=== PATIENT | female | born 1985 | race Caucasian/White ===

== ENCOUNTER 2018-10-08 16:09 | Emergency (ER) | payer MEDICARE, MEDICAID, SELFPAY ==
[2018-10-08 16:27] VITALS: BP 128/71; PULSE 112; RESP 18; TEMP 36.6; O2SAT 98
--- NOTE | 2018-10-08 17:05 | W.ED.GENAD ---
Discharge Plan Disposition Patient Disposition: HOME Condition: Fair Discharge Details Chief Complaint: SHUTTLE HAND Clinical Impression: Exposure to STD Primary Care Provider: Iris Logan V ED Provider: Sybil Traore Home Meds and New Rx's Prescriptions: No Action No Known Home Meds RF: 0 Discharge Instructions Instructions: Chlamydia (ED), Gonorrhea (ED) Additional Instructions: [facility] to discuss current treatment and schedule Depo shot. No unprotected sex for the next 7 days. If you develop abdominal pain, pain with urination, fevers/chills, vaginal discharge or other new/worsening symptoms please seek care urgently once again. You were treated today with ceftriaxone and azithromycin. Referrals: Iris Logan MD [Primary Care Provider] - Discharge Data Discharge Date/Time-TO BE ENTERED AT DEPARTURE: 10/08/18 18:10 Medical Decision Making Patient is a 33 year old female, accompanied by significant other, with c/c of GC/Chlamydia exposure. She reports that significant other was treated a few weeks ago and she is concerned that she was exposed. Signficant other was advised to have her come to be treated. She denies any symptoms, no discharge, dysparunea, dysurea, foul odor. Finished LMP 2 days ago. Is due for her depo shot, typically gets this through [facility]. Exam is without significant abnromality. Naveed is noted to be tachycardic but does seem very nervous about this. I did offer her further testing her but she would prefer treatment at this time with close follow up with [facility] where she may receive her injection and discuss testing. Will treat prophylactically with IM Ceftriaxone and oral Azithromycin. Discussed new/worsening symptoms and when to seek care urgently once again. She will contact [facility] tomorrow to schedule followup. All of her questions and concerns were addressed, she is in agreement with this plan. HPI General Mode of arrival: ambulatory. Date/Time Provider Initiated Documentation: 10/08/18 16:45. Limitations to Documentation: no limitations. Information obtained by: patient. History of Present Illness 33 year old F presents to the emergency department with the chief complaint of STD exposure, Patient started experiencing this week(s) Patient notes no other symptoms.; denies chest pain, cough, fever/chills, headaches, loss of appetite, malaise, nausea/vomiting, rash and weakness. Related Data Home Medications Medication Instructions Recorded Confirmed Unknown [No Known Home Meds] 10/08/18 10/08/18 Allergies Allergy/AdvReac Type Severity Reaction Status Date / Time sulfamethoxazole AdvReac Intermediate Headache Verified 10/08/18 16:31 [From Bactrim] trimethoprim [From Bactrim] AdvReac Intermediate Headache Verified 10/08/18 16:31 General Stated Complaint: SHUTTLE HAND BRUNO: 4 Review of Systems Constitutional Reports as per HPI, Denies chills, Denies fever(s) and Denies poor appetite Cardiovascular Denies chest pain Respiratory Denies cough Gastrointestinal Denies abdominal pain, Denies change in bowel habits, Denies nausea and Denies vomiting Genitourinary Reports as per HPI, Denies abnormal menses, Denies urinary frequency, Denies genital pruritis, Denies genital lesions, Denies dysuria, Denies flank pain, Denies urinary incontinence, Denies urinary urgency, Denies vaginal discharge, Denies vaginal dryness, Denies vaginal odor and Denies vaginal pruritus Musculoskeletal Reports as per HPI and Denies back pain Integumentary/Breasts Reports as per HPI and Denies rash PFSH Family History Other Diabetes Mental disorder Personal history of malignant neoplasm Medical History Anxiety Social History Smoking/Tobacco Use Status: Current every day Exam Const General: cooperative, healthy appearing, comfortable, no acute distress, well developed and well groomed Nutritional Appearance: average body habitus and well nourished Orientation: alert and awake Resp Effort & Inspection: normal respiratory effort and no respiratory distress Auscultation: clear to auscultation bilaterally, no rales, no rhonchi and no wheezes Cardio Rate: regular rate Rhythm: regular rhythm Heart Sounds: S1 normal and S2 normal GI Inspection: normal to inspection Palpation: soft, no hepatosplenomegaly, not firm, no guarding, not rigid and nontender Back/Spine/Pelvis Back: no CVA tenderness Skin General skin exam: no rashes or lesions noted Trauma: no lacerations or abrasions Neuro General: alert and awake Cognition: normal cognition Speech: speech normal Gait: normal gait Psych Appearance: grossly normal and well kempt Mental Status: mental status grossly normal Speech and Movement: speech and movement normal Course Vital Signs Temperature 36.6 C 10/08/18 16:27 Pulse 112 H 10/08/18 16:27 Respiratory Rate 18 10/08/18 16:27 Blood Pressure 128/71 10/08/18 16:27 Pulse Oximetry 98 10/08/18 16:27 Temperature 36.6 C 10/08/18 16:27 Temperature Source Skin 10/08/18 16:27 Pulse 112 H 10/08/18 16:27 Respiratory Rate 18 10/08/18 16:27 Respiratory Effort 10/08/18 16:27 Blood Pressure 128/71 10/08/18 16:27 Blood Pressure Position Sitting 10/08/18 16:27 Pulse Oximetry 98 10/08/18 16:27 Oxygen Delivery Method Room Air 10/08/18 16:27 Oxygen Flow Rate 0 10/08/18 16:27 Pain Level 0 10/08/18 16:27
--- NOTE | 2018-10-08 17:11 | ED.GENADUL_ITS ---
Discharge Plan Disposition Patient Disposition: HOME Condition: Fair Discharge Details Chief Complaint: BIOINFORMATICIAN Clinical Impression: Exposure to STD Primary Care Provider: Iris Logan V ED Provider: Sybil Traore Home Meds and New Rx's Prescriptions: No Action No Known Home Meds RF: 0 Discharge Instructions Instructions: Chlamydia (ED), Gonorrhea (ED) Additional Instructions: [facility] contact [facility] to discuss current treatment and schedule Depo shot. No unprotected sex for the next 7 days. If you develop abdominal pain, pain with urination, fevers/chills, vaginal discharge or other new/worsening symptoms please seek care urgently once again. You were treated today with ceftriaxone and azithromycin. Referrals: Iris Logan MD [Primary Care Provider] - Discharge Data Discharge Date/Time-TO BE ENTERED AT DEPARTURE: 10/08/18 18:10 Medical Decision Making Patient is a 33 year old female, accompanied by significant other, with c/c of GC/Chlamydia exposure. She reports that significant other was treated a few weeks ago and she is concerned that she was exposed. Signficant other was advised to have her come to be treated. She denies any symptoms, no discharge, dysparunea, dysurea, foul odor. Finished LMP 2 days ago. Is due for her depo shot, typically gets this through [facility]. Exam is without significant abnromality. Naveed is noted to be tachycardic but does seem very nervous about this. I did offer her further testing her but she would prefer treatment at this time with close follow up with [facility] where she may receive her injection and discuss testing. Will treat prophylactically with IM Ceftriaxone and oral Azithromycin. Discussed new/worsening symptoms and when to seek care urgently once again. She will contact [facility] tomorrow to schedule followup. All of her questions and concerns were addressed , she is in agreement with this plan. HPI General Mode of arrival: ambulatory . Date/Time Provider Initiated Documentation: 10/08/18 16:45 . Limitations to Documentation: no limitations . Information obtained by: patient . History of Present Illness 33 year old F presents to the emergency department with the chief complaint of STD exposure, Patient started experiencing this week(s) Patient notes no other symptoms.; denies chest pain, cough, fever/chills, headaches, loss of appetite, malaise, nausea/vomiting, rash and weakness. Related Data Home Medications Medication Instructions Recorded Confirmed Unknown [No Known Home Meds] 10/08/18 10/08/18 Allergies Allergy/AdvReac Type Severity Reaction Status Date / Time sulfamethoxazole AdvReac Intermediate Headache Verified 10/08/18 16:31 [From Bactrim] trimethoprim [From Bactrim] AdvReac Intermediate Headache Verified 10/08/18 16: 31 General Stated Complaint: BIOINFORMATICIAN BRUNO: 4 Review of Systems Constitutional Reports as per HPI, Denies chills, Denies fever(s) and Denies poor appetite Cardiovascular Denies chest pain Respiratory Denies cough Gastrointestinal Denies abdominal pain, Denies change in bowel habits, Denies nausea and Denies vomiting Genitourinary Reports as per HPI, Denies abnormal menses, Denies urinary frequency, Denies genital pruritis, Denies genital lesions, Denies dysuria, Denies flank pain, Denies urinary incontinence, Denies urinary urgency, Denies vaginal discharge, Denies vaginal dryness, Denies vaginal odor and Denies vaginal pruritus Musculoskeletal Reports as per HPI and Denies back pain Integumentary/Breasts Reports as per HPI and Denies rash PFSH Family History Other Diabetes Mental disorder Personal history of malignant neoplasm Medical History Anxiety Social History Smoking/Tobacco Use Status: Current every day Exam Const General: cooperative, healthy appearing, comfortable, no acute distress, well developed and well groomed Nutritional Appearance: average body habitus and well nourished Orientation: alert and awake Resp Effort & Inspection: normal respiratory effort and no respiratory distress Auscultation: clear to auscultation bilaterally, no rales, no rhonchi and no wheezes Cardio Rate: regular rate Rhythm: regular rhythm Heart Sounds: S1 normal and S2 normal GI Inspection: normal to inspection Palpation: soft, no hepatosplenomegaly, not firm, no guarding, not rigid and nontender Back/Spine/Pelvis Back: no CVA tenderness Skin General skin exam: no rashes or lesions noted Trauma: no lacerations or abrasions Neuro General: alert and awake Cognition: normal cognition Speech: speech normal Gait: normal gait Psych Appearance: grossly normal and well kempt Mental Status: mental status grossly normal Speech and Movement: speech and movement normal Course Vital Signs Temperature 36.6 C 10/08/18 16:27 Pulse 112 H 10/08/18 16:27 Respiratory Rate 18 10/08/18 16:27 Blood Pressure 128/71 10/08/18 16:27 Pulse Oximetry 98 10/08/18 16:27 Temperature 36.6 C 10/08/18 16:27 Temperature Source Skin 10/08/18 16:27 Pulse 112 H 10/08/18 16:27 Respiratory Rate 18 10/08/18 16:27 Respiratory Effort 10/08/18 16:27 Blood Pressure 128/71 10/08/18 16:27 Blood Pressure Position Sitting 10/08/18 16:27 Pulse Oximetry 98 10/08/18 16:27 Oxygen Delivery Method Room Air 10/08/18 16:27 Oxygen Flow Rate 0 10/08/18 16:27 Pain Level 0 10/08/18 16:27
[2018-10-08] MEDS: Azithromycin 250 MG TAB 1000 MG PO (17:48)
[2018-10-08] MEDS: cefTRIAXone 250 MG VIAL IM (17:48)
== END 2018-10-08 18:10 | disposition home or self-care (01) ==
PROVIDERS: Emergency Provider Physician Assistant; PCP Family Medicine
DX: R00.0 Tachycardia, unspecified (principal); Z20.2 Contact with and (suspected) exposure to infections with a predominantly sexual mode of transmission
CPT/HCPCS: 96372; 99284; J0696

== ENCOUNTER 2018-12-30 03:02 | Emergency (ER) | payer MEDICARE, MEDICAID, SELFPAY ==
[2018-12-30 03:11] VITALS: BP 106/63; PULSE 134; RESP 20; TEMP 38.6; O2SAT 92
--- NOTE | 2018-12-30 03:31 | ED.GENADUL_ITS ---
Discharge Plan Disposition Patient Disposition: HOME Condition: Good Discharge Details Chief Complaint: RespSymp Clinical Impression: Influenza A Primary Care Provider: Iris Logan V ED Provider: Niranjan Mercado Home Meds and New Rx's Prescriptions: No Action No Known Home Meds RF: 0 Discharge Instructions Instructions: Influenza (ED) Additional Instructions: You will need to rest and hydrate over the week. Use Tylenol and Motrin for fever and pain. Follow-up with primary care next week if not doing better. Return to ED for mental status changes, increasing shortness of breath, chest pain, vomiting, other concerns. Referrals: Iris Logan MD [Primary Care Provider] - Medical Decision Making Patient had oral temperature taken and she is febrile. That would explain her tachycardia. Saturations little on the low side but she is a smoker. She has good air exchange and only a few scattered wheezes. She has no focal lung findings. Flu swab was sent by nursing but given her symptoms and her exposure suspect that influenza is her diagnosis. She has no underlying medical issues. She does not qualify for Tamiflu and I have discussed this with her. Management is simply rest, fluids, Tylenol and Motrin as needed for fever and pain. Follow-up with primary care next week if not doing better. Return to the emergency department for increasing shortness of breath, mental status changes, chest pain, vomiting, other concerns. She is given Motrin here for her fever and body pain. Prior to discharge her flu swab did return positive for influenza A. HPI General Mode of arrival: ambulatory . Date/Time Provider Initiated Documentation: 12/30/18 03:22 . Limitations to Documentation: no limitations . Information obtained by: patient . HPI Narrative: Patient presents to ED with complaints of fever, body aches, cough. Symptoms started and she has been in bed most of the weekend. Her son tested positive for influenza. She is a smoker. She feels a little short of breath. She does not have any underlying medical problems that she is aware of. She has no vomiting and is able to drink. She took Tylenol earlier today but nothing recently. Related Data Home Medications Medication Instructions Recorded Confirmed Unknown [No Known Home Meds] 10/08/18 12/30/18 Allergies Allergy/AdvReac Type Severity Reaction Status Date / Time sulfamethoxazole AdvReac Intermediate Headache Verified 12/30/18 03:16 [From Bactrim] trimethoprim [From Bactrim] AdvReac Intermediate Headache Verified 12/30/18 03:16 General Stated Complaint: RespSymp BRUNO: 4 Review of Systems Constitutional Reports body ache(s), Reports fatigue, Reports fever(s), Denies headache(s), Reports malaise and Denies weakness ENT Denies headache(s), Reports nasal congestion, Denies neck pain and Denies sore throat Cardiovascular Denies chest pain, Denies syncope and Reports dyspnea (mild) Respiratory Reports cough and Reports dyspnea (mild) Gastrointestinal Denies abdominal pain, Denies diarrhea, Denies nausea and Denies vomiting Musculoskeletal Reports back pain, Reports myalgias, Denies neck pain and Denies numbness Integumentary/Breasts Denies rash Neurologic Denies confusion, Denies syncope, Denies headache(s), Denies numbness and Denies weakness Psychiatric Denies confusion Endocrine Reports fatigue [facility] Medical History Anxiety Family History Other Diabetes Mental disorder Personal history of malignant neoplasm Social History Smoking and Tabacco status: Current every day Exam Const General: cooperative and no acute distress Orientation: alert and oriented x3 HENMT Head: normocephalic and atraumatic Ears: external ears normal and TM's normal bilaterally Mouth: oropharynx normal and moist mucous membranes Throat: posterior oropharynx normal Neck Neck: no lymphadenopathy, trachea midline and supple Resp Effort & Inspection: normal respiratory effort Auscultation: lung sounds not diminished, no rales, no rhonchi and wheezes scattered wheezes (faint ) Cardio Rate: tachycardic Rhythm: regular rhythm Heart Sounds: S1 normal and S2 normal Pulses: radial pulses present Skin General skin exam: no rashes or lesions noted Neuro General: alert, oriented x3, no focal motor deficits and CN's II-XI intact bilaterally Course Vital Signs Temperature 98.6 F 12/30/18 03:11 Pulse 134 H 12/30/18 03:11 Respiratory Rate 20 12/30/18 03:11 Blood Pressure 106/63 12/30/18 03:11 Pulse Oximetry 92 L 12/30/18 03:11 Temperature 98.6 F 12/30/18 03:11 Pulse 134 H 12/30/18 03:11 Respiratory Rate 20 12/30/18 03:11 Respiratory Effort 12/30/18 03:15 Respiratory Depth Normal 12/30/18 03:15 Blood Pressure 106/63 12/30/18 03:11 Pulse Oximetry 92 L 12/30/18 03:11 Oxygen Delivery Method Room Air 12/30/18 03:11 Oxygen Flow Rate 0 12/30/18 03:11 Pain Level 7 12/30/18 03:11 Lab/Test Results Lab/Test Results: 12/30/18 03:15 Nose Influenza Types A,B Antigen - Pending
[2018-12-30 03:35] VITALS: TEMP 38.6
[2018-12-30] MEDS: Ibuprofen 600 MG TAB PO (03:35)
== END 2018-12-30 03:52 | disposition home or self-care (01) ==
PROVIDERS: Emergency Provider Emergency Medicine; PCP Family Medicine
DX: M79.10 Myalgia, unspecified site (principal); R50.9 Fever, unspecified; J10.1 Influenza due to other identified influenza virus with other respiratory manifestations; F17.210 Nicotine dependence, cigarettes, uncomplicated
CPT/HCPCS: 87449; 99282

== ENCOUNTER 2020-01-01 15:45 | Outpatient (CLI) | payer MEDICARE, MEDICAID, SELFPAY ==
--- NOTE | 2020-01-01 | DI.RAD_ITS ---
EXAM: XR FINGER LT MIDDLE INDICATION: LT FINGER PAIN [id number], LT MIDDLE FINGER DISTAL PHALYNX LESION, CHRONIC. COMPARISON: No exams were available for comparison TECHNIQUE: 2D digital imaging was performed. FINDINGS: No fracture or bony erosion is seen. No soft tissue calcification or soft tissue mass is seen. IMPRESSION: Negative left middle finger.
== END 2020-01-01 16:05 ==
PROVIDERS: PCP Family Medicine; Visit Provider Specialist/Technologist Athletic Trainer
DX: M79.645 Pain in left finger(s) (principal)
CPT/HCPCS: 73140

== ENCOUNTER 2022-08-01 18:51 | Emergency (ER) | payer MEDICARE, MEDICAID, SELFPAY ==
[2022-08-01 18:59] VITALS: BP 136/79; PULSE 105; RESP 18; TEMP 36.9; O2SAT 95
--- NOTE | 2022-08-01 19:42 | ED.GENADUL_ITS ---
Discharge Plan Disposition Patient Disposition: HOME Condition: Good Discharge Details Clinical Impression: Dental infection Primary Care Provider: Iris Logan V ED Provider: Darrion Mclain Home Meds and New Rx's Prescriptions: New penicillin V potassium 500 mg tablet 500 mg PO QID 10 Days Qty: 40 0RF No Action buprenorphine-naloxone [Suboxone] 12-3 mg Film 1 film SUBLINGUAL DAILY Discharge Instructions Instructions: Dental Abscess (ED) Additional Instructions: The block we administered should help improve your pain. Please take 800 mg of ibuprofen every 6 hours and 1000 mg of Tylenol every 6 hours to help with the inflammation and pain. These are the maximum doses. Please take the antibiotic as directed to help with the infection in your tooth. The full prescription has been sent to your pharmacy. Please use the dental list that we have provided to contact the dentist for prompt follow-up and evaluation for tooth removal. If you notice any worsening of your symptoms, or any new symptoms such as difficulty swallowing, difficulty breathing, vomiting, diarrhea, fever, chills, shortness of breath, chest pain, numbness, weakness, or fainting , please return immediately to the emergency department for reevaluation. Please follow up with your primary care provider as soon as possible for reassessment and reevaluation. As always, it was a pleasure participating in your medical care today. Referrals: Iris Logan MD [Primary Care Provider] - Discharge Data Discharge Date/Time-TO BE ENTERED AT DEPARTURE: 08/01/22 20:18 Medical Decision Making 37-year-old female with no significant past medical history presents today for evaluation of left upper tooth pain. She has had fillings before. Patient states that she noticed pain and swelling over the left upper canine tooth that started about 2-1/2 to 3 days ago. Coincidentally, about 24 hours prior to this she had done her home self-administered skin care and regeneration injections. She states that she has done these injections many times before, but she has never used the product that she used 4 days ago. She did inject both sides of her face, and only has a swelling on her left. She denies fever or chills. She does have a dentist appointment this week. No other complaints at this time. She denies difficulty swallowing drinking or breathing. Exam demonstrates a small amount of swelling over the left canine tooth In the upper mouth. Bedside ultrasound performed seems to demonstrate a small area of fluid collection that comes directly off the tooth, and is not in the superficial skin where she injected. Differential is highest for periapical abscess. Consent was given, dental block was performed, patient had complete resolution of her pain. We did attempt to aspirate the fluid area, but unfortunately no fluid was removed. We will start the patient on penicillin for antibacterial coverage of dental abscess. She does have dental follow-up in 24 hours. Recommend continued Tylenol and Motrin. Discussed red flags for which to return. I have extensively reviewed the treatment plan and discharge instructions with the patient. I have addressed all patient concerns at this time. The patient was made aware of what symptoms to monitor for that would warrant a return to the emergency department. Discussed the plan with the patient, they demonstrate verbal understanding and agreement with our assessment and plan at this time. The documentation in this chart was dictated using [employer] dictation software. Please excuse any dictation errors. HPI General Date/Time Provider Initiated Documentation: 08/01/22 19:41 . HPI Narrative: 37-year-old female with no significant past medical history presents today for evaluation of left upper tooth pain. She has had fillings before. Patient states that she noticed pain and swelling over the left upper canine tooth that started about 2-1/2 to 3 days ago. Coincidentally, about 24 hours prior to this she had done her home self-administered skin care and regeneration injections. She states that she has done these injections many times before, but she has never used the product that she used 4 days ago. She did inject both sides of her face, and only has a swelling on her left. She denies fever or chills. She does have a dentist appointment this week. No other complaints at this time. She denies difficulty swallowing drinking or breathing. Related Data Home Medications Medication Instructions Recorded Confirmed buprenorphine 12 mg-naloxone 3 mg 1 film sublingual DAILY 08/01/22 08/01/22 sublingual film (Suboxone) penicillin V potassium 500 mg 500 mg PO QID 10 days #40 tabs 08/01/22 tablet Previous Rx's Medication Instructions Recorded penicillin V potassium 500 mg 500 mg PO QID 10 days #40 tabs 08/01/22 tablet Allergies Allergy/AdvReac Type Severity Reaction Status Date / Time sulfamethoxazole AdvReac Intermediate Headache Verified 08/01/22 19:01 [From Bactrim] trimethoprim [From Bactrim] AdvReac Intermediate Headache Verified 08/01/22 19:01 General Stated Complaint: DentalOral BRUNO: 4 Review of Systems All systems reviewed & are unremarkable except as noted in HPI and below PFSH All Active Problems Dental infection (Acute) Medical History Anxiety Family History Other Diabetes Mental disorder Personal history of malignant neoplasm Social History Smoking/Tobacco Use Status: Current every day Smoking risk assessment performed?: Yes Alcohol Intake: former Drug use: Current Sobriety Substance use type: former substance user Do you feel safe at home: Yes Do you feel safe in your relationship?: Yes Exam Narrative Exam Narrative: 1.Const: Well-nourished, Well-developed, appearing stated age 2.Eyes: PERRL, no conjunctival injection, and symmetrical lids. 3.ENT: Atraumatic external nose and ears. Moist MM. Neck: Symmetric, trachea midline, No thyromegaly. The patient's left upper mouth just above the canine demonstrates mild swelling. No redness. No significant warmth. Intraorally there does appear to be a small area of fluctuance just above the canine on the left upper tooth. Tenderness is present in this area. No evidence of Ludewig's angina, airway compromise, or orbital cellulitis. 4.CVS: +S1/S2, No murmurs or gallops. Peripheral pulses 2+ and equal in all extremities. Brisk capillary refill in all extremities. 5.RESP: Unlabored respiratory effort. Clear to auscultation bilaterally. No wheezes rales or rhonchi 6.GI: Soft, Nontender/Nondistended, No hepatosplenomegaly. No guarding or rebound. 7.MSK: Normocephalic/Atraumatic, Extremities w/o deformity or ttp No cyanosis or clubbing, Normal movement of all extremities 8.Skin: Warm, Dry. No rashes or lesions. 9.Neuro: executive associate II-XII grossly intact. Sensation grossly intact, no focal neurologic deficits. 10.Psych: (AAO) x3. Appropriate mood and affect Course Vital Signs Vital signs: Vital Signs Temperature 36.9 C 08/01/22 18:59 Pulse 105 H 08/01/22 18:59 Respiratory Rate 18 08/01/22 18:59 Blood Pressure 136/79 08/01/22 18:59 Pulse Oximetry 95 08/01/22 18:59 Temperature 36.9 C 08/01/22 18:59 Temperature Source Skin 08/01/22 18:59 Pulse 105 H 08/01/22 18:59 Respiratory Rate 18 08/01/22 18:59 Respiratory Effort 08/01/22 19:03 Blood Pressure 136/79 08/01/22 18:59 Pulse Oximetry 95 08/01/22 18:59 Pain Level 7 08/01/22 18:59 Procedures Abscess I/D Site: Face (Left upper tooth) Side (if applicable): Left Local Anesthetic: Bupivicaine 0.5% Amount of anesthesia used (mL): 5 Technique: Needle Aspiration Amount of fluid expressed (mL): 0.5 Irrigation: No Packing used?: None Nerve Block Nerve Block 1: Time out performed: Yes Local Anesthetic: Bupivicaine 0.5% Amount of anesthesia used (mL): 5 Intraoral Nerve Block: superior alveolar Procedure Successful: Yes Patient Tolerated Procedure: well and no complications Complications: none
[2022-08-01] MEDS: Penicillin V POTASSIUM 500 MG TAB, 4 TABS/BTL PO (20:10)
--- NOTE | 2022-08-02 17:18 | NUR.NOTE ---
Spoke with patient about her prescription that was sent to [facility] in [facility]. PAtient usually uses [facility] in [facility]. I asked that patient check with [facility] for prescription
== END 2022-08-01 20:18 | disposition home or self-care (01) ==
PROVIDERS: Emergency Provider Student in an Organized Health Care Education/Training Program; PCP Family Medicine
DX: K04.7 Periapical abscess without sinus (principal); F17.210 Nicotine dependence, cigarettes, uncomplicated
CPT/HCPCS: 41800; 99284

== ENCOUNTER 2022-08-22 16:14 | Emergency (ER) | payer MEDICARE, MEDICAID, SELFPAY ==
--- NOTE | 2022-08-22 16:15 | RT.EKG_ITS ---
APPROVED REPORT Exam: Resting ECG Reason for Exam: chest pain Patient Location: E HR:132 bpm ECG Measurements Heart Rate 132 AXIS AR 132 P 85 QRSd 77 QRS 87 QT 284 T 15 QTc 421 Conclusion Sinus tachycardia...rate> 99 no STEMI, non-diagnostic EKG I have reviewed and interpreted ECG and agree with software generated interpretation.
[2022-08-22 16:19] VITALS: BP 140/86; PULSE 122; RESP 18; TEMP 36.7; O2SAT 97
--- NOTE | 2022-08-22 16:30 | DI.RAD_ITS ---
Exam(s) XR CHEST 2V PA LATERAL EXAM: XR CHEST 2V PA LATERAL CLINICAL HISTORY: Chest pain TECHNIQUE: 2D digital imaging was performed. COMPARISON: CR CHEST 2 VIEWS PA,LAT from 07/20/2010 FINDINGS: Lungs are hyperinflated. HEART: Normal size. Aorta: PULMONARY VASCULATURE: Normal. LUNGS: Clear. PLEURAL SPACE: No pleural effusion or pneumothorax. BONE:Unremarkable for age. IMPRESSION: Hyperinflation, no acute abnormality. DATA REPOSITORY: RADIATION DOSE DELIVERED:
[2022-08-22 16:32] VITALS: RESP 20
--- NOTE | 2022-08-22 16:35 | W.ED.GENAD ---
Discharge Plan Disposition Patient Disposition: HOME Condition: Stable Discharge Details Clinical Impression: Anxiety Primary Care Provider: Iris Logan V ED Provider: Rhianna Lake Home Meds and New Rx's Prescriptions: No Action buprenorphine-naloxone [Suboxone] 12-3 mg Film 1 film SUBLINGUAL DAILY Discharge Instructions Instructions: Chest Pain (ED), Anxiety (ED) Additional Instructions: At this time work-up is within normal limits. No evidence for cardiac involvement at this time. No evidence for pneumonia or problems with your lungs. I do suspect that this is anxiety related. Follow up with primary care provider in 3-5 days. Return to ED sooner if any worsening or concerns. Increase oral fluids. Please take Tylenol or Ibuprofen with food every 4-6 hours as needed for pain and swelling. Referrals: Iris Logan MD [Primary Care Provider] - 3 days Discharge Data Discharge Date/Time-TO BE ENTERED AT DEPARTURE: 08/22/22 18:05 Medical Decision Making 37-year-old female presents to the ER with chief complaint of left-sided dental chest pain for approximately 2 weeks. She also reports a cough productive of some sputum. Denies any fever chills or radiation of the pain. She does present somewhat tachycardic with a heart rate of 122. She reports that she does have anxiety. She is not take any medications for anxiety. Cardiac work-up ordered including chest x-ray and a D-dimer. She is a smoker. No significant past cardiac history. Initial cardiac work-up within normal limits, D-dimer is within normal limits, white blood cell count 11.72, potassium 3.4 magnesium 1.6 initial troponin less than 50. Did give 4 mg of magnesium here in the department. And 0.5 lorazepam. Patient reevaluation she reports feeling much better. Discharged home with follow-up care with PCP and a card for SHEYLA May. This text was generated using [employer] dictation system, please disregard any oddities of phrase or misspellings. Lab Data Lab results reviewed: Yes I reviewed the patient's lab results. Labs: Laboratory Tests Range/Units 08/22/22 08/22/22 08/22/22 16:30 16:30 16:30 WBC (4.4-10.8) 10^3/uL 11.72 H RBC (3.93-5.22) 10^6/uL 4.99 Hgb (11.2-15.7) g/dL 14.9 Hct (36.0-46.0) % 44.2 MCV (80-95) fL 89 MCH (27.0-33.0) pg 29.9 MCHC (32.0-36.0) % 33.7 RDW (11.7-14.6) % 12.9 Plt Count (130-400) 10^3/uL 272 MPV (8.0-11.0) fL 10.8 Immature Gran % 0.3 Neutrophils % 59.8 Lymphocytes % 31.7 Monocytes % 5.2 Eosinophils % 2.1 Basophils % 0.9 Nucleated RBC % (0.0-0.3) % 0.0 Absolute Neutrophils (1.2-6.7) 10^3/uL 7.01 H Absolute Lymphocytes (1.2-3.4) 10^3/uL 3.72 H Absolute Monocytes (0.1-0.8) 10^3/uL 0.61 Absolute Eosinophils (0.0-0.7) 10^3/uL 0.25 Absolute Basophils (0.0-0.2) 10^3/uL 0.11 D-Dimer (<500) ng/mlFEU 122 Sodium (136-145) mmol/L 139 Potassium (3.5-5.1) mmol/L 3.4 L Chloride (98-107) mmol/L 101 Carbon Dioxide (21.0-32.0) mmol/L 30.0 Anion Gap (3-11) mmol/L 8.0 BUN (7-18) mg/dL 12 Creatinine (0.55-1.02) mg/dL 0.6 Est GFR (CKD-EPI 2020) (mL/min/1.73m2) 117.75 Glucose (74-106) mg/dL 116 H Calcium (8.5-10.1) mg/dL 8.9 Magnesium (1.8-2.4) mg/dL 1.6 L Total Bilirubin (0.2-1.0) mg/dL 0.5 AST (15-37) U/L 12 L ALT (14-59) U/L 20 Alkaline Phosphatase (46-116) U/L 67 Troponin I (<or=60) ng/L < 50 Total Protein (6.4-8.2) g/dL 7.1 Albumin (3.4-5.0) g/dL 4.0 Range/Units 08/22/22 19:34 WBC (4.4-10.8) 10^3/uL RBC (3.93-5.22) 10^6/uL Hgb (11.2-15.7) g/dL Hct (36.0-46.0) % MCV (80-95) fL MCH (27.0-33.0) pg MCHC (32.0-36.0) % RDW (11.7-14.6) % Plt Count (130-400) 10^3/uL MPV (8.0-11.0) fL Immature Gran % Neutrophils % Lymphocytes % Monocytes % Eosinophils % Basophils % Nucleated RBC % (0.0-0.3) % Absolute Neutrophils (1.2-6.7) 10^3/uL Absolute Lymphocytes (1.2-3.4) 10^3/uL Absolute Monocytes (0.1-0.8) 10^3/uL Absolute Eosinophils (0.0-0.7) 10^3/uL Absolute Basophils (0.0-0.2) 10^3/uL D-Dimer (<500) ng/mlFEU Sodium (136-145) mmol/L Potassium (3.5-5.1) mmol/L Chloride (98-107) mmol/L Carbon Dioxide (21.0-32.0) mmol/L Anion Gap (3-11) mmol/L BUN (7-18) mg/dL Creatinine (0.55-1.02) mg/dL Est GFR (CKD-EPI 2020) (mL/min/1.73m2) Glucose (74-106) mg/dL Calcium (8.5-10.1) mg/dL Magnesium (1.8-2.4) mg/dL Total Bilirubin (0.2-1.0) mg/dL AST (15-37) U/L ALT (14-59) U/L Alkaline Phosphatase (46-116) U/L Troponin I (<or=60) ng/L Cancelled Total Protein (6.4-8.2) g/dL Albumin (3.4-5.0) g/dL HPI General Mode of arrival: ambulatory. Date/Time Provider Initiated Documentation: 08/22/22 16:16. Limitations to Documentation: no limitations. Information obtained by: patient, RN notes reviewed and old records reviewed. HPI Narrative: 37-year-old female presents to the ER with chief complaint of left-sided dental chest pain for approximately 2 weeks. She also reports a cough productive of some sputum. Denies any fever chills or radiation of the pain. She does present somewhat tachycardic with a heart rate of 122. She reports that she does have anxiety. She is not take any medications for anxiety. Related Data Home Medications Medication Instructions Recorded Confirmed buprenorphine 12 mg-naloxone 3 mg 1 film sublingual DAILY 08/01/22 08/22/22 sublingual film (Suboxone) Allergies Allergy/AdvReac Type Severity Reaction Status Date / Time sulfamethoxazole AdvReac Intermediate Headache Verified 08/22/22 16:20 [From Bactrim] trimethoprim [From Bactrim] AdvReac Intermediate Headache Verified 08/22/22 16:20 General Stated Complaint: Chest Pain BRUNO: 2 Review of Systems All systems reviewed & are unremarkable except as noted in HPI and below Cardiovascular Cardiovascular: Denies acrocyanosis, Reports chest pain, Denies syncope, Reports rapid heart rate and Denies pedal edema Neurologic Neurologic: Denies syncope PFSH All Active Problems (Updated 08/22/22 @ 17:48 by Rhianna Lake NP) Dental infection (Acute) Anxiety (Chronic) Medical History Anxiety Family History Other Diabetes Mental disorder Personal history of malignant neoplasm Social History Smoking/Tobacco Use Status: Current every day Tobacco Type: cigarettes Smoking risk assessment performed?: Yes Alcohol Intake: former Drug use: Current Sobriety Substance use type: former substance user Do you feel safe at home: Yes Do you feel safe in your relationship?: Yes Exam Narrative Exam Narrative: Constitutional: Alert and oriented x3. Appears stated age. Normal body habitus. Head: Normocephalic, no trauma. Eyes: Pupils PERRL, Red reflex noted, EOM's intact. Eyelids symmetrical without lesions, discharge, or swelling. ENT: Bilateral TM's WNL, External ear normal to inspection, no mastoid TTP, swelling, or erythema, Nasal turbinates WNL, no nasal discharge. Normal dentition, Posterior pharynx WNL, no exudate. Chest: RRR, Normal S1, S2, distal pulses intact. Resp: Lungs clear to auscultation bilaterally, no wheezes, rales, or rhonchi. Abdomen: Soft, non-distended, Normoactive bowel sounds all 4 quads. Musculoskeletal: Normal gait, 5/5 strength to all four extremities. Skin: No suspicious rashes or lesions. Capillary refill less than 2 sec. Neurologic: Cranial nerves II-XII intact. Alert and oriented x 3. Motor: No deficits noted. Sensory: Intact bilaterally all 4 extremities. Reflexes: DTR's intact bilaterally.. Hematologic/Lymphatic: No ecchymosis, no lymphadenopathy. Course Vital Signs Vital signs: Vital Signs Temperature 36.7 C 08/22/22 16:19 Pulse 122 H 08/22/22 16:19 Respiratory Rate 18 08/22/22 16:19 Blood Pressure 140/86 08/22/22 16:19 Pulse Oximetry 97 08/22/22 16:19 Temperature 36.7 C 08/22/22 16:19 Temperature Source Temporal Artery Scan 08/22/22 16:19 Pulse 122 H 08/22/22 16:19 Respiratory Rate 20 08/22/22 16:32 Respiratory Effort Non-Labored 08/22/22 16:32 Respiratory Depth Normal 08/22/22 16:32 Respiratory Pattern Normal 08/22/22 16:32 Blood Pressure 140/86 08/22/22 16:19 Blood Pressure Position Sitting 08/22/22 16:19 Pulse Oximetry 97 08/22/22 16:19 Oxygen Delivery Method Room Air 08/22/22 16:19 Oxygen Flow Rate 0 08/22/22 16:19 Pain Level 6 08/22/22 16:19
[2022-08-22 16:53] LABS: Abs Immature Grans 0.04 10^3/uL (0.0-0.06); Absolute Eosinophil Count 0.25 10^3/uL (0.0-0.7); Absolute Monocyte Count 0.61 10^3/uL (0.1-0.8); Absolute Neutrophil Count 7.01 10^3/uL (1.2-6.7); Basophils % 0.9; Eosinophils % 2.1; HCT 44.2 % (36.0-46.0); HGB 14.9 g/dL (11.2-15.7); Immature Grans % 0.3; Lymphocytes % 31.7; MCH 29.9 pg (27.0-33.0); MCHC 33.7 % (32.0-36.0); MCV 89 fL (80-95); MPV 10.8 fL (8.0-11.0); Monocytes % 5.2; Neutrophils % 59.8; Platelet Count 272 10^3/uL (130-400); RBC 4.99 10^6/uL (3.93-5.22); RDW 12.9 % (11.7-14.6); RDW-SD 42.1 fL; WBC 11.72 10^3/uL (4.4-10.8)
[2022-08-22 16:55] LABS: Absolute Basophil Count 0.11 10^3/uL (0.0-0.2); Absolute Lymphocyte Count 3.72 10^3/uL (1.2-3.4)
[2022-08-22 17:10] LABS: ALT 20 U/L (14-59); AST 12 U/L (15-37); Alkaline Phosphatase 67 U/L (46-116); BUN 12 mg/dL (7-18); Bilirubin, Total 0.5 mg/dL (0.2-1.0); CREATININE 0.6 mg/dL (0.55-1.02); Calcium 8.9 mg/dL (8.5-10.1); Chloride 101 mmol/L (98-107); Estimated GFR 117.75 (mL/min/1.73m2); Glucose 116 mg/dL (74-106); Magnesium 1.6 mg/dL (1.8-2.4); Potassium 3.4 mmol/L (3.5-5.1); Sodium 139 mmol/L (136-145); Total Protein 7.1 g/dL (6.4-8.2); Troponin I < 50 ng/L (<or=60)
[2022-08-22] MEDS: LORazepam 0.5 MG TAB PO (17:13)
[2022-08-22] MEDS: Normal Saline 500 ML IV (17:13)
[2022-08-22 17:33] LABS: D-Dimer 122 ng/mlFEU (<500)
[2022-08-22] MEDS: Magnesium Oxide 400 MG TAB PO (17:52)
[2022-08-22 17:56] VITALS: BP 131/87; PULSE 96; RESP 24; TEMP 37; O2SAT 96
== END 2022-08-22 18:05 | disposition home or self-care (01) ==
PROVIDERS: Emergency Provider Registered Nurse Emergency; PCP Family Medicine
DX: F41.9 Anxiety disorder, unspecified (principal); R07.89 Other chest pain; R00.0 Tachycardia, unspecified; F17.210 Nicotine dependence, cigarettes, uncomplicated; R05.9 Cough, unspecified
CPT/HCPCS: 80053; 93005; 96360; 99284; 71046; 83735; 84484; 85025; 85379; 93010

== ENCOUNTER 2023-07-03 12:15 | Outpatient (REF) | payer MEDICARE, MEDICAID, SELFPAY ==
[2023-07-03 15:54] LABS: HCT 42.3 % (36.0-46.0); HGB 13.7 g/dL (11.2-15.7); MCH 28.5 pg (27.0-33.0); MCHC 32.4 % (32.0-36.0); MCV 88 fL (80-95); MPV 10.9 fL (8.0-11.0); Platelet Count 268 10^3/uL (130-400); RDW 14.5 % (11.7-14.6); RDW-SD 46.5 fL; WBC 8.61 10^3/uL (4.4-10.8)
[2023-07-03 16:50] LABS: Anion Gap 7.1 mmol/L (3-11); BUN 18 mg/dL (7-18); CO2 27.9 mmol/L (21.0-32.0); CREATININE 0.7 mg/dL (0.55-1.02); Calcium 8.7 mg/dL (8.5-10.1); Chloride 103 mmol/L (98-107); Estimated GFR 112.75 (mL/min/1.73m2); Glucose 136 mg/dL (74-106); Magnesium 1.8 mg/dL (1.8-2.4); Potassium 4.1 mmol/L (3.5-5.1); Sodium 138 mmol/L (136-145); TSH (W/Ref FT4) 0.83 uIU/mL (0.36-3.74)
== END 2023-07-03 12:16 | disposition home or self-care (01) ==
LOC: NCHCN 12:15
PROVIDERS: PCP Family Medicine; Visit Provider Family Medicine
DX: R00.0 Tachycardia, unspecified (principal); E46 Unspecified protein-calorie malnutrition; E87.6 Hypokalemia; E83.42 Hypomagnesemia
CPT/HCPCS: 80048; 85027; 83735; 84443

== ENCOUNTER → 2023-10-20 00:47 | Outpatient (CLI) | payer MEDICARE, MEDICAID, SELFPAY ==
--- NOTE | 2023-10-20 | DI.RAD_ITS ---
Exam(s) XR CHEST 2V PA LATERAL EXAM: XR CHEST 2V PA LATERAL CLINICAL HISTORY: CHEST PAIN, R07.9 TECHNIQUE: 2D digital imaging was performed of the chest. Two images were obtained. PA and lateral views were obtained. COMPARISON: CR XR CHEST 2V PA LATERAL from 08/22/2022 FINDINGS: MEDIASTINUM: Normal. HEART: Normal. PULMONARY VASCULATURE: Normal. LUNGS: There is hyperinflation of the lungs. No focal infiltrates are seen. PLEURAL SPACE: No pleural effusion or pneumothorax. BONE:Within normal limits for the patient's age. OTHER FINDINGS:Normal. IMPRESSION: Hyperinflation of the lungs. No focal infiltrates. DATA REPOSITORY: RADIATION DOSE DELIVERED:
== END ==
PROVIDERS: PCP Family Medicine; Visit Provider Family Medicine
DX: J98.4 Other disorders of lung (principal)
CPT/HCPCS: 71046

== ENCOUNTER → 2023-12-11 02:01 | Outpatient (CLI) | payer MEDICARE, MEDICAID, SELFPAY ==
--- NOTE | 2023-12-11 13:30 | DI.US_ITS ---
APPROVED REPORT EXAM: Comprehensive 2D, Doppler, and color-flow Echocardiogram Patient Location: Out-Patient Record Filing Clerk: Gregg Bryant RDCS (AE) Indications: atrial dialation, cardiomegaly Conclusion 1. Normal chamber sizes. 2. Normal LV function,EF 60%. Normal RV function. 3. Anatomically normal valves. No significant regurgitation or stenosis. 4. No intracardiac shunt. 5. No pericardial effusion. Wall motion Left Ventricle Left ventricular cavity is small. The left ventricular systolic function is normal. The left ventricu lar ejection fraction is within the normal range. There is normal left ventricular wall thickness. Th ere is normal LV segmental wall motion. There is no ventricular septal defect visualized. LVEF is 58- 60%. Right Ventricle The right ventricle is normal size. The right ventricular systolic function is normal. Atria The left atrium size is normal. The right atrium size is normal. The interatrial septum is intact wit h no evidence for an atrial septal defect. Aortic Valve The aortic valve is normal in structure. Number of aortic valve leaflets could not be assessed. There is no aortic valvular stenosis. No aortic regurgitation is present. Mitral Valve The mitral valve is normal in structure. No evidence of mitral valve stenosis. Tricuspid Valve The tricuspid valve is normal in structure. There is no tricuspid valve stenosis. Trace tricuspid reg urgitation. Unable to assess PA pressure. Pulmonic Valve The pulmonary valve is normal in structure. There is no pulmonic valvular stenosis. There is no pulmo jus valvular regurgitation. Great Vessels The aortic root is normal in size. Ascending aorta is not well visualized. IVC is normal in size and collapses >50% with inspiration. Pericardium There is no pericardial effusion. 2D Dimensions IVSD d PLAX 0.65 cm F: 0.6-1.0 Ao Root d 2.23 cm F: 2.7 - 3.3 LVPW d PLAX 0.57 cm F: 0.6 - 1.0 LVID d PLAX 3.00 cm F: 3.8 - 5.2 LVDs 2.07 cm F: 2.2 - 3.5 LV EF Teichholz 60.3 % FS 31.01 % LV EDV (Teich) 34.9 mL LV ESV (Teich) 13.8 mL Stroke Vol Index (Teich) 15.15 M-Mode TAPSE 1.59 cm (M/F) >1.7 Auto EF LV EDV A4C 62.5 mL LV EDV A2C 69.2 mL LV EDV BP 65.9 mL LV ESV A4C 26.0 mL LV ESV A2C 28.2 mL LV ESV BP 27.4 mL LVEF(%) A4C 58.3 % LVEF(%) A2C 59.2 % LVEF(%) BP 58.4 % LV SV A4C 36.5 ml LV SV A2C 40.9 ml LV SV BP 38.5 ml LV CO A4C 3.9 L/min LV CO A2C 4.1 L/min LV CO BP 4.0 L/min HR A4C 105.89 BPM HR A2C 100.84 BPM LV EDV Index (BP) LA Volume LA Length A4C 3.1 cm LA Length A2C LA Area A4C s 5.82 cm2 LA Area A2C s LA Vol A4C A-L 9.35 mL LA Vol A2C A-L LA Vol Biplane A-L LA Vol A4C MOD 8.8 mL LA Vol A2C MOD LA Vol BP MOD RA Volume RA Area A4C 4.4 cm2 RA ESV A4C (A-L) 5.9mL RA Vol/BSA A4C A-L RA Length A4C 2.8 cm RA ESV A4C (MOD) 5.4mL LV Diastology MV E' medial 0.107 (>0.07 m/s) MV E Vmax 0.74 (0.4-1.3 m/s) MV E/E' MED 6.89 (<14) MV A Vmax 0.75 (0.4-1.3 m/s) MV E' lateral 0.098 (>0.1 m/s) E/A Ratio 1.0 MV E/E' LAT 7.58 (<14) MV E' Average 0.103 m/s MV E/E'(average) 7.22 Aortic Valve AoV Vmax 0.93 m/s LVOT Vmax 0.82 m/s AoV Peak Grad 3.5 mmHg LVOT Peak Grad 2.7 mmHg AoV Area (Vmax) 2.16 cm2 LVOT VTI 0.122 m AoV VTI 0.164 m LVOT Mean Grad 1.7 mmHg AoV Mean Weston. 0.67 m/s LVOT SV 29.85 mL AoV Mean Grad 2.0 mmHg LVOT Diam s 1.75 cm AoV Area (VTI) 1.83 cm2 Velocity Ratio 0.88 Mitral Valve MV DT 138 (160-240 msec) Pulmonary Valve PV Vmax 0.73 (0.5-1.5 m/s) RVOT Vmax 0.57 m/s PV Peak Grad 2.1 mmHg RVOT Peak Gr. 1.3 mmHg PV Mean Weston 0.58 m/s RVOT VTI 0.093 m PV Mean Grad 1.5 mmHg RVOT Mean Gr. 0.9 mmHg
== END ==
PROVIDERS: PCP Family Medicine; Visit Provider Family Medicine
DX: I51.7 Cardiomegaly (principal)
CPT/HCPCS: 93306

== ENCOUNTER → 2023-12-22 12:54 | Outpatient (BNVA) | payer MEDICARE, MEDICAID, SELFPAY | PROVIDERS: PCP Family Medicine; Referring Provider Family Medicine; Visit Provider Student in an Organized Health Care Education/Training Program | DX: J43.9 Emphysema, unspecified (principal); R09.89 Other specified symptoms and signs involving the circulatory and respiratory systems; F17.210 Nicotine dependence, cigarettes, uncomplicated | CPT/HCPCS: 99215; 99406 ==

== ENCOUNTER → 2024-01-11 00:44 | Outpatient (CLI) | payer MEDICARE, MEDICAID, SELFPAY ==
--- NOTE | 2024-01-11 13:12 | DI.CT_ITS ---
Exam(s) CT CHEST HIGH RESOLUTION EXAM: CT CHEST HIGH RESOLUTION CLINICAL HISTORY: assess quantity of emphysema,j43.9. TECHNIQUE: Imaging protocol: Axial computed tomography images were obtained and coronal and sagittal reformatted images were created and reviewed. COMPARISON: CR XR CHEST 2V PA LATERAL from 10/20/2023 FINDINGS: Tracheobronchial tree: Patent where visualized. Pulmonary parenchyma: There is moderately severe centrilobular emphysema. There is hyperinflation of the lungs. There is involvement throughout the lungs, but the findings are most marked in the upper lobes bilaterally. No focal consolidating infiltrates. Mild atelectasis is seen in the lateral asp ect of the right lower lobe. Mediastinum and [place]: No dominant adenopathy or fluid collection. The esophagus is unremarkable. Thyroid gland: Unremarkable. Pleura: No effusion or pneumothorax. Heart: The heart is not dilated. No coronary artery calcifications are seen. No pericardial effusion. Aorta: Thoracic aorta non-dilated. Upper abdomen: Unremarkable. Lymph nodes: Within normal limits. Soft tissues: Unremarkable. Bones:Within normal limits for the patient's age. IMPRESSION: Moderately severe centrilobular emphysematous changes predominantly involving the upper lobes bilater ally. RADIATION DOSE DELIVERED: 359.35mGy.cm Total DLP 359.35mGy.cm Total DLP DATA REPOSITORY: All CT scans at this facility are submitted to the National Radiology Data Registry (NRDR) Dose Index Registry (DIR) with the [employer] (ACR). RADIATION OPTIMIZATION: All CT scans at this facility use at least one of these dose optimization te chniques: automated exposure control; mA and/or kV adjustment per patient size (includes targeted exa ms where dose is matched to clinical indication); or iterative reconstruction.
== END ==
PROVIDERS: PCP Family Medicine; Visit Provider Student in an Organized Health Care Education/Training Program
DX: J43.9 Emphysema, unspecified (principal)
CPT/HCPCS: 71250

== ENCOUNTER 2024-01-19 03:15 | Outpatient (CLI) | payer MEDICARE, MEDICAID, SELFPAY ==
[2024-01-19] MEDS: Levalbuterol HFA 15 GM INH 4 PUFF IH (14:14)
[2024-01-19] MEDS: Inhaler, Assist Device 1 EACH MC (14:14)
--- NOTE | 2024-01-19 14:32 | W.PFT ---
Date of service: 01/19/24 Time of Service: 13:02 Pulmonary Function Test Result Indications: Chest pain Interpretation Spirometry: There is severe airflow limitation. There is a 13% increase in FEV1 with a bronchodilator but technically does not meet criteria for a response. Lung Volumes: There is hyperinflation and air trapping Diffusion Capacity: Decreased diffusion Airway Pressure: Increased airways resistance Impression Severe airflow obstruction with air trapping and a decreased diffusion consistent with COPD with emphysema. Clinical Correlation therefore is recommended.
== END 2024-01-19 03:16 | disposition home or self-care (01) ==
PROVIDERS: PCP Family Medicine; Visit Provider Student in an Organized Health Care Education/Training Program
DX: J44.9 Chronic obstructive pulmonary disease, unspecified (principal); F17.210 Nicotine dependence, cigarettes, uncomplicated
CPT/HCPCS: 94060; 94726; 94729

== ENCOUNTER → 2024-02-20 14:56 | Outpatient (BNVA) | payer MEDICARE, MEDICAID, SELFPAY | PROVIDERS: PCP Family Medicine; Referring Provider Family Medicine; Visit Provider Student in an Organized Health Care Education/Training Program | DX: J43.9 Emphysema, unspecified (principal); F17.210 Nicotine dependence, cigarettes, uncomplicated | CPT/HCPCS: 99214; 99406 ==

== ENCOUNTER 2024-05-10 14:23 | Outpatient (REF) | payer MEDICARE, MEDICAID, SELFPAY ==
--- NOTE | 2024-05-10 13:50 | PAPFT_PTH ---
PATIENT: Nely Rhoades LOC: [facility] WITH [facility]#:[id number] AGE/SX: 39/F ROOM: RE05/10/[address]: Iris Logan V : 1985 BED: DIS: 05/10/2024 SPEC #: [id number] RECD: 05/10/24 18:42 STATUS: LEXIE REShraddha #: [id number] YVONNE: 05/10/24 13:[address]: Iris Logan V DEPT: [facility] Cytology RECD BY: Nay Nguyen Tissues: 1 - CX/ENDOCX FOR PAP SMEARS Procedures: PAP THIN PREP/[facility] Screening HPV DNA PROBE Comments: [id number] (HPV 16 & 18/45)
== END 2024-05-10 14:24 | disposition home or self-care (01) ==
LOC: NCHCN 14:23
PROVIDERS: PCP Family Medicine; Visit Provider Family Medicine
DX: Z01.419 Encounter for gynecological examination (general) (routine) without abnormal findings; Z11.51 Encounter for screening for human papillomavirus (HPV)
CPT/HCPCS: 88142; 87624

== ENCOUNTER → 2024-06-21 01:04 | Outpatient (CLI) | payer MEDICARE, MEDICAID, SELFPAY ==
--- NOTE | 2024-06-21 12:25 | DI.MAMMO_ITS ---
Exam(s) MAMMO SCREENING EXAM: MAMMO SCREENING CLINICAL HISTORY: SCREENING, Z12.31 TECHNIQUE: Mammograms were interpreted according to the usual protocol including computer analysis w [employer] CAD system, tomosynthesis and C-view imaging. COMPARISON: None. Baseline examination. FINDINGS: The breasts are composed of scattered fibroglandular densities, Breast Density category B. No suspicious masses or suspicious microcalcifications are seen. There are several benign-appearing nodules bilaterally. No skin thickening or abnormal axillary lymph nodes are seen. There has been no significant change from prior exams. IMPRESSION: BI-RADS Category 2 - Benign Findings Yearly screening mammography is recommended. Breast Density - Category B, scattered fibroglandular densities. A negative radiographic report should not delay biopsy if a dominant or clinically suspicious mass is present. Up to ten percent of cancers are not identified on mammography. A negative report may reinforce clinical impression. Adenosis and dense breasts may obscure an underlying neoplasm. False positive reports average 6 to 10%. Patient will receive a letter notifying them of these results.
== END ==
PROVIDERS: PCP Family Medicine; Visit Provider Family Medicine
DX: Z12.31 Encounter for screening mammogram for malignant neoplasm of breast (principal)
CPT/HCPCS: 77063; 77067

== ENCOUNTER 2025-09-21 19:41 | Emergency (ER) | payer MEDICARE, MEDICAID, SELFPAY ==
[2025-09-21 19:45] VITALS: BP 182/113; PULSE 135; RESP 18; TEMP 36.1; O2SAT 98
--- NOTE | 2025-09-21 19:45 | RT.EKG_ITS ---
APPROVED REPORT Exam: Resting ECG Reason for Exam: tachycardia Patient Location: E HR:129 bpm ECG Measurements Heart Rate 129 AXIS WV 142 P 76 QRSd 75 QRS 78 QT 308 T 39 QTc 452 Conclusion Sinus tachycardia...rate> [address] depression, diffuse leads...ST <-0.03mV, ant/lat/inf No STEMI
[2025-09-21 20:02] LABS: Abs Immature Grans 0.03 10^3/uL (0.0-0.06); HCT 42.1 % (36.0-46.0); HGB 14.2 g/dL (11.2-15.7); Immature Grans % 0.3 %; MCH 29.2 pg (27.0-33.0); MCHC 33.7 % (32.0-36.0); MCV 87 fL (80-95); MPV 9.3 fL (8.0-11.0); Platelet Count 280 10^3/uL (130-400); RBC 4.86 10^6/uL (3.93-5.22); RDW 12.4 % (11.7-14.6); RDW-SD 39.4 fL; WBC 9.65 10^3/uL (4.4-10.8)
--- NOTE | 2025-09-21 20:02 | W.ED.GENAD ---
Discharge Plan Disposition Patient Disposition: Home Discharge Details Clinical Impression: Abdominal pain, Anxiety Primary Care Provider: Iris Logan V ED Provider: Wellington Mccarthy Home Meds and New Rx's Prescriptions: New dicyclomine 20 mg tablet 20 mg PO TID Qty: 14 0RF No Action Ivette Aranda 160-9-4.8 mcg/actuation HFA aerosol inhaler 2 inh inhalation BID Qty: 10.7 12RF clonazepam 0.5 mg tablet See Rx Instructions PO DAILY PRN Rx Instructions: .5-1 tablet orally daily PRN; albuterol sulfate 90 mcg/actuation HFA aerosol inhaler 2 puff inhalation Q6H PRN (Reason: shortness of breath or wheezing) Qty: 8.5 0RF Discharge Instructions Instructions: Abdominal Pain, Adult ED, Anxiety, Adult ED Additional Instructions: Please follow-up with your primary care provider regarding your visit to the emergency department today. Be sure to discuss results of all test performed here today to include radiology, and laboratory testing as well as results for any pending cultures. Should your symptoms worsen, or if you develop new concerning symptoms, please return immediately emergency department for further evaluation. HPI General Date/Time Provider Initiated Documentation: 09/21/25 19:43. HPI Narrative: MDM/Narrative: 40-year-old female past medical history of COPD and anxiety, presents for left lower quadrant pain x 2 weeks vital signs notable for tachycardia. Exam reassuring abdominal examination however patient severely anxious. Patient presentation concerning for possible acute intra-abdominal pathology such as acute diverticulitis, left-sided appendicitis, epiploic appendagitis among others. Will obtain screening labs, and CAT scan of the abdomen pelvis with IV contrast. Will treat patient's pain and anxiety with droperidol and IV fluids to hopefully improve the patient's heart rate. ED course: After administration of droperidol IV, patient had akathisia reaction. She is no longer willing to take any other medications besides clonazepam which is what she normally takes to manage her anxiety. She is refusing IV fluids. Labs are notable for elevated lactate 2.2 otherwise no significant findings. I recommended the patient that we treat her akathisia reaction with Benadryl and that she would likely benefit from IV fluids given her lactate however she again declines. Patient was brought to the radiology department for a CAT scan however she refused IV contrast. At this point my suspicion for something that a noncontrasted study would be helpful for such as renal colic is quite low, and I suspect that there would be a nondiagnostic test, with guaranteed radiation exposure which would not be the patient's best interest. I explained this to the patient, noted that I would be happy to obtain a contrasted CT scan for her if she does change her mind however she refused, she notes that her pain is somewhat improved and she would prefer to discharge to follow-up as an outpatient. Clinical impression: Left lower quadrant abdominal pain Anxiety Disposition: Home HPI: 40-year-old female with past medical history of COPD, former smoker, and anxiety presents for evaluation of left lower quadrant abdominal pain. She notes the pain is burning-like rated 6 out of 10, constant without any ameliorating or exacerbating factors. She is concerned that she has colon cancer as she has developed significant anxiety following her diagnosis of emphysema last year. Denies any other new or concerning symptoms. Denies any family history of bowel cancers, IBD, ovarian cancer, breast cancer. ROS: Negative besides as mentioned above Exam: Gen: A&O NAD HEENT: NCAT, EOMI, not icteric. External ears normal. No rhinorrhea. Moist mucous membranes. Neck: Supple, full range of motion, no observable masses, No meningeal sign. Lungs: No Respiratory distress. CV: RRR, no edema. Abdomen: Soft, nondistended, No rebound tenderness. MSK: No joint swelling, no redness. Skin: No rashes, petechiae, lesions. Normal color per patient. Neuro: Normal Gait, Grossly intact. Psych: Severely anxious. Rhythm: Sinus tachycardia Rate: 129 [place]: Normal axis Intervals: Normal intervals Other findings: No acute ST segment changes to suggest acute ischemia. There is diffuse minimal T wave depression. Labs: Laboratory Tests Range/Units 09/21/25 09/21/25 09/21/25 19:55 20:15 20:50 WBC (4.4-10.8) 10^3/uL 9.65 RBC (3.93-5.22) 10^6/uL 4.86 Hgb (11.2-15.7) g/dL 14.2 Hct (36.0-46.0) % 42.1 MCV (80-95) fL 87 MCH (27.0-33.0) pg 29.2 MCHC (32.0-36.0) % 33.7 RDW (11.7-14.6) % 12.4 Plt Count (130-400) 10^3/uL 280 MPV (8.0-11.0) fL 9.3 Immature Gran % % 0.3 Neutrophils % % 59.6 Lymphocytes % % 31.8 Monocytes % % 6.5 Eosinophils % % 1.2 Basophils % % 0.6 Nucleated RBC % (0.0-0.3) % 0.0 Absolute Neutrophils (1.2-6.7) 10^3/uL 5.74 Absolute Lymphocytes (1.2-3.4) 10^3/uL 3.07 Absolute Monocytes (0.1-0.8) 10^3/uL 0.63 Absolute Eosinophils (0.0-0.7) 10^3/uL 0.12 Absolute Basophils (0.0-0.2) 10^3/uL 0.06 VBG Lactate (<or=2.0) mmol/L 2.2 H* Sodium (136-145) mmol/L 140 Potassium (3.5-5.1) mmol/L 3.4 L Chloride (98-107) mmol/L 102 Carbon Dioxide (21.0-32.0) mmol/L 23.0 Anion Gap (3-11) mmol/L 15.0 H BUN (7-18) mg/dL 9 Creatinine (0.55-1.02) mg/dL 0.7 Est GFR (CKD-EPI 2020) (mL/min/1.73m2) 111.36 Glucose (74-106) mg/dL 113 H Calcium (8.5-10.1) mg/dL 8.8 Total Bilirubin (0.2-1.0) mg/dL 0.8 AST (15-37) U/L 14 L ALT (14-59) U/L 20 Alkaline Phosphatase (46-116) U/L 78 Troponin I (<or=51) ng/L 4 Cancelled Total Protein (6.4-8.2) g/dL 7.7 Albumin (3.4-5.0) g/dL 4.2 Lipase (<78) U/L 30 Serum HCG, Qual Negative Urine Color (Yellow) Yellow Urine Clarity (Clear) Clear Urine pH (5-8) 6.0 Ur Specific Mcdaniels (1.005-1.025) >= 1.030 H Urine Protein (Neg-Trace) mg/dL 30 H Urine Ketones (Negative) mg/dL >=160 H Urine Blood (Negative) Small H Urine Nitrite (Negative) Negative Urine Bilirubin (Negative) Small H Urine Urobilinogen (Up to 0.2) mg/dL 0.2 Ur Leukocyte Esterase (Negative) Negative Urine RBC (0-2) HPF 3-5 H Urine WBC (0-5) HPF Negative Ur Epithelial Cells (Negative) HPF Many Urine Crystals (Negative) HPF Negative Urine Bacteria (Negative) HPF Negative Urine Mucus (Negative) Moderate Ur Culture Indicated? No Urine Glucose (Negative) mg/dL Negative Urine Opiates Screen (Negative) Negative Urine Methadone Screen (Negative) Negative Ur Barbiturates Screen (Negative) Negative Ur Tricyclics Screen (Negative) Negative Ur Amphetamines Screen (Negative) Negative U Benzodiazepines Scrn (Negative) Negative Urine Cocaine Screen (Negative) Negative Ur THC Screen (Negative) Negative Radiology: [] Related Data Home Medications Medication Instructions Recorded Confirmed clonazepam 0.5 mg tablet See Rx Instructions PO DAILY PRN 11/10/23 09/21/25 budesonide 160 mcg-glycopyr 9 2 inh inhalation BID #10.7 grams 02/20/24 09/21/25 mcg-formot 4.8 mcg/actuation HFA inhaler (Breztri Aerosphere) albuterol sulfate 90 mcg/actuation 2 puff inhalation Q6H PRN 01/13/25 09/21/25 aerosol inhaler shortness of breath or wheezing #8.5 grams dicyclomine 20 mg tablet 20 mg PO TID #14 tabs 09/21/25 Previous Rx's Medication Instructions Recorded budesonide 160 mcg-glycopyr 9 2 inh inhalation BID #10.7 grams 02/20/24 mcg-formot 4.8 mcg/actuation HFA inhaler (Breztri Aerosphere) albuterol sulfate 90 mcg/actuation 2 puff inhalation Q6H PRN 01/13/25 aerosol inhaler shortness of breath or wheezing #8.5 grams dicyclomine 20 mg tablet 20 mg PO TID #14 tabs 09/21/25 Allergies Allergy/AdvReac Type Severity Reaction Status Date / Time sulfamethoxazole (From AdvReac Intermediate Headache Verified 09/21/25 19:50 Bactrim) trimethoprim (From Bactrim) AdvReac Intermediate Headache Verified 09/21/25 19:50 General Stated Complaint: Abd Prob BRUNO: 3 Course Vital Signs Vital signs: Vital Signs Temperature 36.1 C L 09/21/25 19:45 Pulse 135 H 09/21/25 19:45 Respiratory Rate 18 09/21/25 19:45 Blood Pressure 182/113 H 09/21/25 19:45 Pulse Oximetry 98 09/21/25 19:45 Temperature 36.1 C L 09/21/25 19:45 Pulse 135 H 09/21/25 19:45 Respiratory Rate 18 09/21/25 19:45 Blood Pressure 182/113 H 09/21/25 19:45 Pulse Oximetry 98 09/21/25 19:45 Oxygen Delivery Method Room Air 09/21/25 19:45 Oxygen Flow Rate 0 09/21/25 19:45 Pain Level 6 09/21/25 19:45 PFSH All Active Problems (Updated 09/21/25 @ 21:01 by Wellington Mccarthy MD) Anxiety (Chronic) Abdominal pain (Acute) COPD (chronic obstructive pulmonary disease) (Chronic) Emphysema lung (Acute) Nicotine dependence, cigarettes, uncomplicated (Acute) Hyperinflation of lungs (Acute) Disorder of skin (Acute) Urinary tract disease (Acute) Nicotine dependence (Acute) Hypokalemia (Acute) Major depression (Chronic) Panic disorder with agoraphobia (Acute) Tachycardia (Acute) Deficiency of macronutrients (Acute) Back muscle spasm (Acute) Hypomagnesemia (Acute) Chest pain (Acute) Medical History Anxiety Family History (Updated 11/10/23 @ 14:07 by Piper Nelson) Mother Thyroid condition Other Diabetes Mental disorder Personal history of malignant neoplasm Social History (Updated 11/10/23 @ 14:09 by Piper Nelson) Smoking/Tobacco Use Status: Current every day Tobacco Type: cigarettes Smoking packs per day: 2 Smoking cigarettes per day: 40.0 Years smoked: 26 Smoking pack-years: 52.00 Smoking risk assessment performed?: Yes Alcohol Intake: former Drug use: Current Sobriety Substance use type: former substance user Do you feel safe at home: Yes Do you feel safe in your relationship?: Yes
[2025-09-21] MEDS: Droperidol 5 MG/2 ML VIAL 2.5 MG IVP (20:03)
[2025-09-21 20:19] LABS: ALT 20 U/L (14-59); AST 14 U/L (15-37); Albumin 4.2 g/dL (3.4-5.0); Alkaline Phosphatase 78 U/L (46-116); Anion Gap 15.0 mmol/L (3-11); BUN 9 mg/dL (7-18); Bilirubin, Total 0.8 mg/dL (0.2-1.0); CO2 23.0 mmol/L (21.0-32.0); Calcium 8.8 mg/dL (8.5-10.1); Chloride 102 mmol/L (98-107); Glucose 113 mg/dL (74-106); Lipase 30 U/L (<78); Potassium 3.4 mmol/L (3.5-5.1); Sodium 140 mmol/L (136-145); Total Protein 7.7 g/dL (6.4-8.2)
[2025-09-21 20:21] LABS: Troponin I 4 ng/L (<or=51)
[2025-09-21 20:22] VITALS: BP 182/113; PULSE 135; RESP 18; TEMP 36.1; O2SAT 98
[2025-09-21] MEDS: Normal Saline 1,000 ML 2000 ML IV ×2 (20:23)
[2025-09-21] MEDS: clonazePAM 0.5 MG TAB PO (20:23)
[2025-09-21 20:28] LABS: HCG Qual (Serum) Negative
[2025-09-21 20:35] LABS: Glucose Negative (Negative)
[2025-09-21 20:45] LABS: C & S Indicated? No; WBC Negative HPF (0-5)
[2025-09-21 20:51] LABS: Cannabinoids THC Negative (Negative)
== END 2025-09-21 21:08 | disposition home or self-care (01) ==
LOC: ER 21:07
PROVIDERS: Emergency Provider General Practice; PCP Family Medicine
DX: R10.32 Left lower quadrant pain (principal); F41.9 Anxiety disorder, unspecified
CPT/HCPCS: 99284 ×2; 96374; 80053; 80307; 83690; 93005; 96361; 81003; 81015; 83605; 84484; 84703; 85025; 93010; J1790

== ENCOUNTER → 2025-10-03 09:23 | Outpatient (CLI) | payer MEDICARE, MEDICAID, SELFPAY ==
[2025-10-03] MEDS: Omnipaque 350 MG/ML 100 ML BTL IJ (15:10)
[2025-10-03] MEDS: Normal Saline Flush 10 ML SYR IVP (15:12)
[2025-10-03] MEDS: Normal Saline - Diluent 50 ML VIAL IJ (15:12)
--- NOTE | 2025-10-03 15:22 | DI.CT_ITS ---
Exam(s) CT ABDOMEN PELVIS W EXAM: CT ABDOMEN PELVIS W CLINICAL HISTORY: R10.32 Left lower quadrant pain. TECHNIQUE: Imaging Protocol: Axial computed tomography images with coronal and sagittal reformatted images were created and reviewed CONTRAST MATERIAL: Intravenous: Omnipaque 350 Contrast volume:75 ml Oral: no. Patient declined oral contrast. COMPARISON: No exams were available for comparison FINDINGS: ABDOMEN and PELVIS: Lung Bases: No acute findings. Liver: Normal density. No suspicious mass. Gallbladder and biliary tract: No radiodense calculus. No wall thickening or pericholecystic fluid. No biliary dilation. Pancreas: Normal density. No abnormal calcifications or inflammatory process. No evidence of mass. Spleen: Normal. Kidneys: Normal size, contour and axis. No radiodense stones. No obstructive uropathy. No suspicious masses seen. Adrenal glands: No masses seen. Vasculature: Abdominal aorta non-dilated. Soft tissues: Unremarkable. Bladder: Nearly empty, not well evaluated. No gross wall thickening. No calculi.No focal mass. Bowel: No obstruction. No bowel wall thickening. Appendix normal. Normal quantity of stool. Peritoneal cavity: No ascites. No focal collection. No mesenteric inflammatory response. No free air. Bones: Unremarkable for age. Reproductive organs: Unremarkable. Lymph nodes: No pathologically enlarged lymph nodes. IMPRESSION:: No acute abnormality in the abdomen or pelvis. RADIATION DOSE DELIVERED: Total DLP DATA REPOSITORY: All CT scans at this facility are submitted to the National Radiology Data Registry (NRDR) Dose Index Registry (DIR) with the [employer] ([employer]). RADIATION OPTIMIZATION: All CT scans at this facility use at least one of these dose optimization techniques: automated exposure control; mA and/or kV adjustment per patient size (includes targeted exams where dose is matched to clinical indication); or iterative reconstruction.
== END ==
PROVIDERS: PCP Family Medicine; Visit Provider Family Medicine
DX: R10.32 Left lower quadrant pain (principal)
CPT/HCPCS: 74177; J3490